=== PATIENT | female | born 1935 | race Caucasian/White ===

== ENCOUNTER 2021-05-09 20:27 | Observation (INO) | payer OTHER ==
[~2021-05-09] VITALS: Ht 162.6 cm; Wt 67.1 kg
[~2021-05-09 20:27] MED LIST: BACTROBAN OINT22 GM TOP; SULFAMETHOXAZO1 EACH PO
[2021-05-09 22:12] LABS: HEMOGLOBIN 10.2 gm/dl (12.3-15.3); RED BLOOD COUNT 3.47 M/UL (4.00-5.10); WHITE BLOOD COUNT 10.7 K/UL (4.5-11.0)
[2021-05-10] MEDS ORDERED: GLYBURIDE-METF1 EACH PO (01:09)
[2021-05-10] MEDS ORDERED: HYDROCHLOROTH12.5 M1 PO (01:09)
[2021-05-10] MEDS ORDERED: CETIRIZINE HCL10 MG PO (01:10)
[2021-05-10] MEDS ORDERED: LISINOPRIL20 MG PO (01:10)
[2021-05-10] MEDS ORDERED: ISOSORBIDE MONO60 MG PO (01:11)
[2021-05-10] MEDS ORDERED: COREG 12.5MG12.5 MG PO (01:14)
[2021-05-10] MEDS ORDERED: ECOTRIN81 MG PO (01:14)
[2021-05-10] MEDS ORDERED: DESYREL 50 MG T50 MG PO (01:14)
[2021-05-10] MEDS ORDERED: AMLODIPINE BESYL5 MG PO (01:14)
[2021-05-10] MEDS ORDERED: METOPROLOL TART50 MG PO (01:15)
[2021-05-10] MEDS ORDERED: ATORVASTATIN CA10 MG PO (01:16)
[2021-05-10] MEDS ORDERED: PIOGLITAZONE HC30 MG PO (01:16)
[2021-05-10 05:51] LABS: HEMOGLOBIN 9.7 gm/dl (12.3-15.3); RED BLOOD COUNT 3.32 M/UL (4.00-5.10)
[2021-05-10] MEDS ORDERED: GLUCOPHAGE 500500 MG PO (14:23)
== END 2021-05-10 16:38 | disposition home or self-care (01) ==
LOC: ER1 20:27 → EDBD 20:27 → MED SURG 4 05-10 00:37 → CDU 05-10 00:37 → MED SURG 4 05-10 01:40
PROVIDERS: Internal Medicine; Nurse Practitioner; ADMIT Internal Medicine
DX: G93.41 Metabolic encephalopathy (principal); E11.649 Type 2 diabetes mellitus with hypoglycemia without coma; N17.9 Acute kidney failure, unspecified; I12.9 Hypertensive chronic kidney disease with stage 1 through stage 4 chronic kidney disease, or unspecified chronic kidney disease; E11.22 Type 2 diabetes mellitus with diabetic chronic kidney disease; N18.4 Chronic kidney disease, stage 4 (severe); E87.1 Hypo-osmolality and hyponatremia; T38.3X5A Adverse effect of insulin and oral hypoglycemic [antidiabetic] drugs, initial encounter; M19.90 Unspecified osteoarthritis, unspecified site; F41.9 Anxiety disorder, unspecified; Z79.82 Long term (current) use of aspirin; Z79.84 Long term (current) use of oral hypoglycemic drugs; Z79.899 Other long term (current) drug therapy; Z20.822 Contact with and (suspected) exposure to COVID-19
CPT/HCPCS: 36415; 70450; 71045; 80048; 80053; 81001; 82550; 82553; 82962; 83036; 84484; 85025; 93005; 96372; 99285; G0378; J1644; U0002